=== PATIENT | female | born 1955 | race Caucasian/White ===

== ENCOUNTER 2017-02-22 10:27 | Emergency (ER) | payer SELFPAY ==
[2017-02-22] MEDS ORDERED: NALOXONE HCL INJ 2 MG/2 ML DISP.SYRIN ONE (10:29)
[2017-02-22] MEDS ORDERED: NORMAL SALINE 1000 ML 1,000 ML IV ONE (10:45)
[2017-02-22] MEDS ORDERED: PROPOFOL 100 ML IV PRN (10:45)
--- NOTE | 2017-02-22 11:03 | ER Document Report ---
ED General - General Stated Complaint: ALTERED MENTAL STATUS Time Seen by Provider: 02/22/17 10:33 TRAVEL OUTSIDE OF THE [place] IN LAST 30 DAYS: No - HPI Patient complains to provider of: Altered mental status Notes: Patient was found in the break area of her place of employment last known well according to EMS was approximately 1 hour prior to their arrival. EMS states that while on transport patient was responding to painful stimuli has stable vital signs and was a one time repeating words back to EMS. Upon her arrival here patient was diaphoretic otherwise unresponsive patient will respond to painful stimuli but not perceptible movement. Initial assessment showed pinpoint pupils no Narcan was given by EMS therefore 2 mg of Narcan was given to the patient with noted response. Decision was made due to low GCS of 8 7 to intubate the patient. No further information was obtained no family at bedside - Related Data Allergies/Adverse Reactions: Penicillins Allergy (Intermediate, Verified 02/22/17 11:44) Past Medical History - Social History Smoking Status: Unknown if Ever Smoked Family History: None Past Surgical History: Reports: Hx Genitourinary Surgery - Hysterectomy Review of Systems - Review of Systems -: Yes ROS unobtainable due to patient's medical condition - Unresponsive Physical Exam - Vital signs Vitals: Resp 12 02/22/17 10:30 Interpretation: Normal - General General appearance: Unresponsive - HEENT Head: Normocephalic, Atraumatic Eyes: Normal Conjunctiva: Normal Cornea: Normal Pupils: Pinpoint Sinus: Normal Nasal: Normal Mouth/Lips: Normal Pharynx: Normal - Respiratory Respiratory status: No respiratory distress Chest status: Nontender Breath sounds: Normal Chest palpation: Normal - Cardiovascular Rhythm: Regular Heart sounds: Normal auscultation Murmur: No - Abdominal Inspection: Normal Distension: No distension Tenderness: Nontender Organomegaly: No organomegaly - Back Back: Normal, Nontender - Extremities General upper extremity: Normal inspection, Normal color, Normal temperature General lower extremity: Normal inspection, Normal color, Normal temperature - Neurological Sara Coma Scale Eye Opening: Spontaneous Sara Coma Scale Verbal: None Sara Coma Scale Motor: Abnormal Flexion [place] Coma Scale Total: 8 - Skin Skin Temperature: Warm Skin Moisture: Dry Skin Color: Normal Course - Re-evaluation Re-evalutation: 02/22/17 10:59 Patient is brought in by EMS found down in her workplace is break room was unresponsive during transport patient did start fighting them whenever they are trying to place nasal cannula into the patient. Patient was repeating questions back to EMS. Upon arrival although patient had GCS of 8-7 with discordant posturing. Patient had pinpoint pupils 2 mg of Narcan was given without any change in mental state decision was made to intubate the patient notified at this time by our radiology team patient has intracranial hemorrhage. Concerned about ruptured aneurysm. Patient will be more likely transferred at this time there is no family at bedside will attempt to contact family. 02/22/17 18:08 Family at bedside just prior to transport updated family about the critical condition of the patient. - Vital Signs Vital signs: Temp Pulse Resp BP Pulse Ox 12 159/75 H 100 02/22/17 12:20 02/22/17 12:20 02/22/17 12:20 - Laboratory Result Diagrams: 02/22/17 11:20 02/22/17 11:20 Laboratory results interpreted by me: 02/22/17 02/22/17 11:20 11:20 Sodium 147.3 H Potassium 2.4 L* Glucose 156 H Direct Bilirubin 0.5 H AST 50 H Total Protein 8.4 H Urine Ketones 20 H Ur Leukocyte Esterase TRACE H Urine Ascorbic Acid 40 H Procedures - Intubation Orotracheal Airway evaluation: Normal anatomy Mallampati Classification: Class 2 Medications: Etomidate Intubation method: Orotracheal Blade size: 3 Equipment used: Glidescope ETT size: 8.0 ETT secured at: Lips ETT secured at (cm): 21 Breath Sounds after Intubation: Equal End tidal CO2 confirmed: Yes Ventilator settings: SIMV Tidal volume: 500 FiO2: 100 Respirations: 12 Pressure support: 5 PEEP: 5 Post Intubation Xray: Yes Intubation Complications: No complications - Additional Procedures OG placement Additional Procedures: Gastric tube replacement Critical Care Note - Critical Care Note Total time excluding time spent on procedures (mins): 60 Comments: Multiple evaluation for patient with significant intracranial bleed Discharge - Discharge Clinical Impression: Intracranial hemorrhage Altered mental status Qualifiers: Altered mental status type: unspecified Qualified Code(s): R41.82 - Altered mental status, unspecified Condition: Critical Disposition: [facility]
--- NOTE | 2017-02-22 11:09 | RADIOLOGY REPORT (SQ) ---
EXAM DESCRIPTION: CHEST SINGLE VIEW COMPLETED DATE/TIME: 02/22/2017 11:02 am REASON FOR STUDY: sob COMPARISON: 07/21/2015 EXAM PARAMETERS: NUMBER OF VIEWS: One view TECHNIQUE: Single frontal radiograph of the chest. RADIATION DOSE: N/A LIMITATIONS: None. FINDINGS: TEMPORARY SUPPORT DEVICES:ETT in expected location. NG tube courses below the georges-diaphr agm in to the stomach. LUNGS AND PLEURA: No opacities. No masses. No effusions. No pneumothorax. MEDIASTINUM AND HILAR STRUCTURES: No masses. Contour normal. HEART AND VASCULAR STRUCTURES: Heart size normal. Normal vascularity. Aorta normal for age BONES: No acute findings. OTHER: No other significant finding. IMPRESSION: NO ACUTE RADIOGRAPHIC FINDING IN THE CHEST. SUPPORT DEVICE(S) IN EXPECTED LOCATIONS. TECHNICAL DOCUMENTATION: JOB ID: [id number] [employer]: [place]- All Rights Reserved
--- NOTE | 2017-02-22 11:10 | RADIOLOGY REPORT (SQ) ---
EXAM DESCRIPTION: CT HEAD WITHOUT COMPLETED DATE/TIME: 02/22/2017 10:57 am REASON FOR STUDY: ams COMPARISON: None. TECHNIQUE: Axial images acquired through the brain without intravenous contrast. Images reviewed wi th bone, brain and subdural windows. Images stored on PACS. All CT scanners at this facility use dose modulation, iterative reconstruction, and/or weight based d osing when appropriate to reduce radiation dose to as low as reasonably achievable (ALARA). [facility]: Dose Right [facility]: CareDose [facility]: Dose Right [facility]: Teradose 4D [facility]: [employer] RADIATION DOSE: Up-to-date CT equipment and radiation dose reduction techniques were employed. CTDIv ol: 64.6 mGy. DLP: 1163 mGy-cm. mGy. LIMITATIONS: None. FINDINGS: A 4.3 x 3.3 cm right temporal lobe perisylvian brain parenchymal hematoma is present. The re is moderate local mass effect with effacement of the sylvian fissure, and effacement of the anteri or right temporal horn lateral ventricle.. Mild right to left subfalcine shift by 4 to 5 mm. There is extensive subarachnoid hemorrhage throughout the right sylvian fissures, interhemispheric fi ssure, suprasellar cistern, pre pontine cistern, and left sylvian fissure. No definite CT findings to suggest acute large territory ischemic change. No subdural hemorrhage. Bone windows demonstrate no calvarial fracture. Paranasal sinuses, mastoid air cells clear. This report was called as a critical result to Dr. Pinzon 1055 hours 02/22/2017. IMPRESSION: 4.3 x 3.3 cm right temporal lobe perisylvian parenchymal hematoma with the extensive sub arachnoid hemorrhage, mild right to left subfalcine shift and partial effacement of the anterior aspe ct right temporal horn lateral ventricle. Findings are worrisome for ruptured MCA aneurysm. EVIDENCE OF ACUTE STROKE: NO. COMMENT: Pertinent findings on the imaging study reported as a CRITICAL RESULT to TOM Lewis at10:55 hours on 02/22/2017. Category of Critical Result: Acute intracranial hemorrhage Quality ID # [id number]: Final reports with documentation of one or more dose reduction techniques (e.g., Au tomated exposure control, adjustment of the mA and/or kV according to patient size, use of iterative reconstruction technique) TECHNICAL DOCUMENTATION: JOB ID: [id number] [facility] [employer]- All Rights Reserved
--- NOTE | 2017-02-22 11:13 | RADIOLOGY REPORT (SQ) ---
EXAM DESCRIPTION: CT CERVICAL SPINE WITHOUT COMPLETED DATE/TIME: 02/22/2017 10:58 am REASON FOR STUDY: ams COMPARISON: None. TECHNIQUE: Axial images acquired through the cervical spine without intravenous contrast. Images re viewed with lung, soft tissue and bone windows. Reconstructed coronal and sagittal MPR images review ed. Images stored on PACS. All CT scanners at this facility use dose modulation, iterative reconstruction, and/or weight based d osing when appropriate to reduce radiation dose to as low as reasonably achievable (ALARA). [facility]: Dose Right [facility]: CareDose [facility]: Dose Right [facility]: Teradose 4D [facility]: Smart [facility] RADIATION DOSE: Up-to-date CT equipment and radiation dose reduction techniques were employed. CTDIv ol: 22.6 mGy. DLP: 436 mGy-cm. mGy. LIMITATIONS: None. FINDINGS: ALIGNMENT: Anatomic. MINERALIZATION: Normal. VERTEBRAL BODIES: No fractures or dislocations. Uncovertebral osteophytes are present at C4-5, C5-6, to a milder degree at C6-7. DISCS: Disc space is narrowed from C4 to C7. FACETS, LATERAL MASSES, POSTERIOR ELEMENTS: No fractures. No dislocation. No acute findings. HARDWARE: None in the spine. VISUALIZED RIBS: No fractures. LUNG APICES AND SOFT TISSUES: There is blood around brainstem. See report of CT of the head. OTHER: No other significant finding. IMPRESSION: Degenerative disc disease and spondylosis as described. TECHNICAL DOCUMENTATION: JOB ID: [id number] Quality ID # [id number]: Final reports with documentation of one or more dose reduction techniques (e.g., Au tomated exposure control, adjustment of the mA and/or kV according to patient size, use of iterative reconstruction technique) 2010 [employer]- All Rights Reserved
[2017-02-22 12:04] LABS: ABSOLUTE BASOPHILS # (AUTO) 0.1 10^3/uL (0.0-0.2); ABSOLUTE EOSINOPHILS # (AUTO) 0.2 10^3/uL (0.0-0.6); ABSOLUTE LYMPHOCYTES (AUTO) 3.6 10^3/uL (0.5-4.7); ABSOLUTE MONOCYTES (AUTO) 0.6 10^3/uL (0.1-1.4); ABSOLUTE NEUT (AUTO) 4.3 10^3/uL (1.7-8.2); BASOPHILS % (AUTO) 0.9 % (0-2); EOSINOPHILS % (AUTO) 2.3 % (0-6); HEMATOCRIT 38.4 % (36.0-47.0); HEMOGLOBIN 12.8 g/dL (12.0-15.5); LYMPHOCYTES % (AUTO) 40.5 % (13-45); MEAN CORPUSCULAR HEMOGLOBIN 29.2 pg (27.0-33.4); MEAN CORPUSCULAR HGB CONC 33.4 g/dL (32.0-36.0); MEAN CORPUSCULAR VOLUME 87 fl (80-97); RED BLOOD COUNT 4.41 10^6/uL (3.72-5.28); RED CELL DISTRIBUTION WIDTH 13.7 % (11.5-14.0); SEGMENTED NEUTROPHILS % (AUTO) 49.3 % (42-78); VENOUS BLOOD BASE EXCESS -0.3 mmol/L; VENOUS BLOOD HCO3 25.5 mmol/L (20-32); VENOUS BLOOD PCO2 46.2 mmHg (35-63); VENOUS BLOOD PH 7.36 (7.30-7.42); WHITE BLOOD COUNT 8.8 10^3/uL (4.0-10.5)
[2017-02-22] MEDS ORDERED: LABETALOL HCL INJ 20 MG/4 ML DISP.SYRIN IV ONE (12:07)
[2017-02-22] MEDS ORDERED: ETOMIDATE INJ/PF 20 MG/10 ML SDV IV ONE (12:08)
[2017-02-22] MEDS ORDERED: ROCURONIUM BROMIDE INJ 50 MG/5 ML VIAL IV ONE ×2 (12:08→14:40)
[2017-02-22] MEDS ORDERED: NALOXONE HCL INJ 2 MG/2 ML DISP.SYRIN IV ONE (12:08)
[2017-02-22 12:10] LABS: PROTHROMBIN TIME 12.9 SEC (11.4-15.4)
[2017-02-22 12:25] VITALS: BP 159/75
[2017-02-22 12:25] LABS: APPEARANCE,URINE SLIGHTLY-CLOUDY; BILIRUBIN,URINE NEGATIVE (NEGATIVE); GLUCOSE, URINE NEGATIVE (NEGATIVE); KETONES,URINE 20 mg/dL (NEGATIVE); LEUKOCYTE ESTERASE,URINE TRACE (NEGATIVE); NITRITE,URINE NEGATIVE (NEGATIVE); PROTEIN,URINE NEGATIVE (NEGATIVE); URINE SPECIFIC GRAVITY 1.013; UROBILINOGEN,URINE NEGATIVE mg/dL (<2.0)
[2017-02-22 12:32] LABS: ALANINE AMINOTRANSFERASE 22 U/L (9-52); ALBUMIN 4.3 g/dL (3.5-5.0); ALKALINE PHOSPHATASE 81 U/L (38-126); ANION GAP 16 (5-19); ASPARTATE AMINO TRANSFERASE 50 U/L (14-36); BILIRUBIN,DIRECT 0.5 mg/dL (0.0-0.4); BILIRUBIN,TOTAL 0.6 mg/dL (0.2-1.3); BLOOD UREA NITROGEN 17 mg/dL (7-20); CALCIUM 9.1 mg/dL (8.4-10.2); CARBON DIOXIDE 24 mmol/L (22-30); CHLORIDE 107 mmol/L (98-107); CREATININE RESULT 0.61 mg/dL (0.52-1.25); GLUCOSE 156 mg/dL (75-110); SODIUM 147.3 mmol/L (137-145); TOTAL PROTEIN 8.4 g/dL (6.3-8.2)
[2017-02-22 12:36] LABS: POTASSIUM 2.4 mmol/L (3.6-5.0)
[2017-02-22 12:40] LABS: URINE BARBITURATES SCREEN NEGATIVE; URINE METHADONE SCREEN NEGATIVE; URINE OPIATES LOW NEGATIVE; URINE PHENCYCLIDINE SCREEN NEGATIVE
--- NOTE | 2017-02-22 13:24 | EKG REPORT ---
SEVERITY:- ABNORMAL ECG - SINUS RHYTHM PROLONGED QT INTERVAL CONSIDER OLD TRUE POST [place]. : Confirmed by: Sundar Oro MD 22-Feb-2017 13:24:23
== END 2017-02-22 12:40 | disposition short-term general hospital (02) ==
LOC: ER 10:27
PROC: 0BH17EZ Insertion of Endotracheal Airway into Trachea, Via Natural or Artificial Opening (ICD-10-PCS; principal; 2017-02-22)
DX: I62.9 Nontraumatic intracranial hemorrhage, unspecified (principal); R41.82 Altered mental status, unspecified; R61 Generalized hyperhidrosis; Z88.0 Allergy status to penicillin; Z90.710 Acquired absence of both cervix and uterus
CPT/HCPCS: 93005; 99291; 96361; 51702; 96374; 36415; 87040; 87086; 85025; 85610; 80053; 81001; 84484; 80307; 82803; 83605; 71010; 70450; 72125; 93010; 31500; J3490 ×2; J2310; J7030